=== PATIENT | female | born 1985 | race Caucasian/White ===

== ENCOUNTER 2024-01-14 21:25 | Emergency (ER) | payer BC, OTHER ==
[2024-01-14] MEDS ORDERED: methylPREDNISolone Sod Succ/PF 125 MG/2 ML VIAL ONE (21:46)
[2024-01-14] MEDS ORDERED: diphenhydrAMINE 50 MG/ML VIAL ONE (21:46)
[2024-01-14] MEDS ORDERED: Sodium Chloride 0.9% 1,000 ML ONE (21:46)
== END 2024-01-14 22:40 | disposition home or self-care (01) ==
LOC: NAV ERS 21:25
DX: T63.461A Toxic effect of venom of wasps, accidental (unintentional), initial encounter (principal); T78.40XA Allergy, unspecified, initial encounter
CPT/HCPCS: 96374; 96375; J1200; J2919; J7030